=== PATIENT | female | born 1965 | race Caucasian/White ===

== ENCOUNTER 2020-09-08 10:11 | Outpatient (CLI) | payer BC, SELFPAY ==
--- NOTE | ~2020-09-08 | MR_ITS ---
EXAMINATION: MR knee LT wo con DATE: 09/08/2020 11:17 INDICATION: Other tear of medial meniscus. Current injury. Left knee pain. TECHNIQUE: Magnetic resonance imaging (MRI) of the left knee was performed without intravenous contra st. Sequences included axial PD-weighted FS FSE, coronal PD-weighted FSE and PD-weighted FS FSE, sagi ttal PD-weighted FSE, and sagittal T2-weighted FS FSE. COMPARISON: Left knee radiographs 08/23/2020 FINDINGS: Medial compartment: There is a torn bucket-handle tear of posterior horn of medial meniscus. There is shallow partial-thi ckness cartilage loss of tibial condyle medially with moderate subchondral edema-like marrow signal i ntensity. There is full-thickness cartilage loss of femoral condyle involving the central and posteri or articular surface and deep partial thickness cartilage loss involving the medial articular surface with mild subchondral edema-like marrow signal intensity. Lateral compartment: Lateral meniscus is normal. There is deep partial-thickness cartilage loss of tibial condyle posterio rly. There is deep partial thickness cartilage loss of femoral condyle involving the central articula r surface. Patellofemoral compartment: There is deep partial thickness cartilage loss of patellar medial and lateral facets and median ridge with mild subchondral edema-like marrow signal intensity. There is cartilage surface irregularity of trochlea. Ligaments and tendons: The anterior and posterior cruciate ligaments are normal. Medial collateral ligament is intact. There are changes of prior sprain of fibular collateral ligament characterized by thickening and increased signal intensity proximally. There is mild patellar tendinopathy. Fluid: There is a large knee joint effusion. There is trace fluid in a Mehta's cyst. There is mild superfici al infrapatellar bursitis. IMPRESSION: 1. Severe chondrosis of medial compartment and moderate chondrosis of lateral and patellofemoral comp artments. 2. Torn bucket-handle tear of medial meniscus. 3. Large knee joint effusion. Reviewed, dictated and finalized at location A. [employer] IMPRESSION: 1. Severe chondrosis of medial compartment and moderate chondrosis of lateral a nd patellofemoral compartments. 2. Torn bucket-handle tear of medial meniscus. 3. Large knee joint effusion.
== END 2020-09-08 10:12 | disposition home or self-care (01) ==
PROVIDERS: PCP Internal Medicine; Visit Provider Orthopaedic Surgery
DX: S83.242A Other tear of medial meniscus, current injury, left knee, initial encounter (principal)
CPT/HCPCS: 73721

== ENCOUNTER 2020-09-17 02:41 | Outpatient (CLI) | payer BC, SELFPAY ==
[2020-09-17 21:22] LABS: SARS-CoV-2 RNA PCR Negative
== END 2020-09-17 02:42 | disposition home or self-care (01) ==
LOC: ANHCOVIDDT 02:41
PROVIDERS: PCP Internal Medicine; Visit Provider Orthopaedic Surgery
DX: Z01.818 Encounter for other preprocedural examination (principal); Z20.828 Contact with and (suspected) exposure to other viral communicable diseases
CPT/HCPCS: 87635; C9803; U0003

== ENCOUNTER 2020-09-20 00:50 | Day surgery (SDC) | payer BC, SELFPAY ==
[2020-09-12 12:17] VITALS: BMI 29.7
--- NOTE | 2020-09-19 14:35 | WPDANESEPPF ---
Anes - Initial Pre Proc Eval Procedure: Operation Date: 09/20/20 08:45 Proposed Procedures p Left Knee Arthroscopic Partial Medial Meniscectomy - Clifford Wise MD Date/Time: 09/19/20 14:35 Surgeon: Clfiford Wise MD Pre Op Diagnosis: left knee medial meniscus tear Patient Data Age: 54 Gender: F Height: 1.7 m Weight: 86.18 kg Allergies Allergy/AdvReac Type Severity Reaction Status Date / Time Penicillins Allergy Intermediate hives Verified 09/20/20 08:07 Home Medications Medication Instructions Recorded Confirmed Type ibuprofen 400 mg tablet 400 mg PO TID PRN 08/23/20 09/20/20 History multivitamin 1 tablet PO DAILY 09/12/20 09/20/20 History Patient hx anesthesia problems: none Family hx anesthesia problems: none PMFSH Surgical History Surgical History History of tonsillectomy and adenoidectomy (~1976) Family History Family History Father Family history of pancreatic cancer Mother Family history of osteoporosis Unknown Hypertension Osteoporosis Social History Social History (Updated 09/20/20 @ 08:10 by Justin Tarango DO) Smoking status: Former smoker Alcohol intake: never Anes - Eval Final PreProcedure Day of Procedure 09/19/20 14:35 Patient weight: overweight Heart: regular rate and rhythm Lungs: clear to auscultation and normal air movement Airway: Mallampati scale class II Neurological: alert and oriented Last oral intake: >/= 8 hours ASA classification: II Emergent: no Anesthetic plan: proceed Anesthesia type and monitoring: general LMA and standard monitoring Informed Consent: The patient's anesthetic plan and its attendant risks and benefits were discussed with the patient/family/POA. Questions were solicited and answers provided to the satisfaction of the patient/family/POA.
[2020-09-20] VITALS (7 sets, daily range): BP systolic 121–133; BP diastolic 57–76; PULSE 53–78; RESP 14–20; TEMP 36.2–36.7; O2SAT 99–100
--- NOTE | 2020-09-20 07:24 | WPDHPUPDATE1 ---
History and Physical Update Update Date/Time: 09/20/20 07:24 History and Physical has been reviewed, including an updated exam of the patient. There are NO changes in the patient's condition. Risks, benefits, and alternatives have been discussed and questions answered. Patient agrees to proceed with procedure.
[2020-09-20] MEDS: ACETAMINOPHEN 500 MG TABLET 1000 MG PO (07:37)
[2020-09-20] MEDS: KETOROLAC 15 MG/ML VIAL (*BKC) IV PUSH (07:43)
[2020-09-20] MEDS: LACTATED RINGERS 1,000 ML 30 ML IV CONT ×2 (07:45→10:14)
[2020-09-20] MEDS: CLINDAMYCIN 900 MG/D5W 50 ML 900 MG/50 ML PIGGYBACK 50 MG IVPB (09:13)
[2020-09-20] MEDS: BUPIVACAINE/EPINEPHRINE 0.25% 10 ML VIAL 30 ML INFILTRATE (10:00)
[2020-09-20] MEDS: fentaNYL CITRATE INJ (*CRX) 100 MCG/2 ML VIAL 25 MCG IV PUSH ×2 (10:26→10:41)
--- NOTE | 2020-09-20 10:33 | PM.PROC ---
Procedure Note - Detailed Date of procedure: 09/20/20 Pre-op diagnosis: left knee medial meniscus tear Left medial meniscus tear. Post-op diagnosis: same Procedure performed: Arthroscopic partial medial meniscectomy, with chondroplasty. Description of procedure: Significant degenerative medial meniscus tear. Also moderate degenerative changes primarily in the medial compartment. Lesser changes laterally. 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 Type 2 on the medial tibia and type 3 in a large area on the medial femoral weight-bearing surface. Complex and horizontal split tear along the posterior and posterior medial meniscus. There were loose fragments and and displaced flap connected to the posterior horn. Debridement of the unstable meniscus was performed. Chondroplasty was performed on the medial femur. Patella had grade 2 chondromalacia laterally. There was a small blister on the trochlea. Anesthesia: GETA Surgeon: Clifford Wise MD Estimated blood loss (mL): 5 Complications: None Condition: stable Disposition: PACU Findings: Brief History: The patient complained of knee pain, swelling and mechanical symptoms despite conservative treatment. MRI confirmed the presence of a meniscus tear. Procedure Details: The patient was identified and the surgical site confirmed and signed in the preoperative holding area. Antibiotics were started per protocol. She was brought to the operative room and transferred to the OR table. A general anesthetic was administered. Supine position with the operative lower extremity position in the leg cavazos after placement of a well padded tourniquet. The leg support was lowered and the contralateral limb was supported with a soft bolster. The knee was prepped and draped in the usual sterile fashion. A time-out was performed. The portal sites were marked and infiltrated with 0.5% Marcaine 20 mL. The limb was exsanguinated and the tourniquet inflated to 300 mL Hg. Standard inferolateral and inferomedial portals were established. Inflow was obtained with the saline pump. The camera was introduced. Diagnostic inspection of the joint was accomplished. The meniscus was debrided with the arthroscopic shaver and punches until stable. Gentle chondroplasty was performed. The arthroscopic instruments were removed. The tourniquet released and wounds closed with subcutaneous 3-0 Monocryl absorbable suture. Steri strips and a sterile dressing were applied. A light elastic wrap was placed. The patient was extubated and brought to the recovery room in stable condition.
== END 2020-09-20 12:05 | disposition home or self-care (01) ==
PROVIDERS: PCP Internal Medicine; Visit Provider Orthopaedic Surgery
PROC: (CPT 29870; principal; 2020-09-20 08:45)
DX: M23.332 Other meniscus derangements, other medial meniscus, left knee (principal); M94.262 Chondromalacia, left knee; Z87.891 Personal history of nicotine dependence
CPT/HCPCS: 29881; A9270; J1100; J1885; J2250; J2370; J2405; J2704; J3010; J7120

== ENCOUNTER 2021-02-22 16:30 | Outpatient (CLI) | payer BC, SELFPAY ==
--- NOTE | ~2021-02-22 | MR_ITS ---
EXAMINATION: MR knee LT wo con DATE: 02/22/2021 17:49 INDICATION: Left knee pain. TECHNIQUE: Magnetic resonance imaging (MRI) of the left knee was performed without intravenous contra st. Sequences included axial PD-weighted FS FSE, coronal PD-weighted FSE and PD-weighted FS FSE, sagi ttal PD-weighted FSE, and sagittal T2-weighted FS FSE. COMPARISON: Left knee radiographs 01/23/2021, MRI 09/08/2020 FINDINGS: Medial compartment: There is a complex tear of body and posterior horn of medial meniscus. There is deep partial thicknes s cartilage loss of tibial condyle involving the central articular surface. There is a subchondral in sufficiency fracture of medial femoral condyle involving the central articular surface with low signa l fracture line and bone marrow edema. There is full-thickness and near full-thickness cartilage loss of femoral condyle involving the central, medial, and posterior articular surface. Lateral compartment: Lateral meniscus is normal. There is shallow partial-thickness cartilage loss of tibial condyle poste riorly. There is deep partial thickness cartilage loss of femoral condyle involving the central artic ular surface. Patellofemoral compartment: There is deep partial thickness chondral loss of patellar medial facet and median ridge and shallow p artial-thickness [employer] loss of patellar lateral facet with mild subchondral edema-like marrow signa l intensity. There is shallow partial-thickness cartilage loss of medial trochlea with cartilage soft ening. Ligaments and tendons: The anterior and posterior cruciate tendons are intact. There are changes of prior sprains of medial collateral ligament and fibular collateral ligament characterized by increased signal proximally. The re is mild patellar tendinopathy. Fluid: There is a moderate-sized knee joint effusion. There is mild superficial infrapatellar bursitis. IMPRESSION: 1. Insufficiency fracture of medial femoral condyle. 2. Severe chondrosis of medial compartment and moderate chondrosis of lateral and patellofemoral comp artments. 3. Complex tear of medial meniscus. 4. Moderate-sized knee joint effusion. Reviewed, dictated and finalized at location A. IMPRESSION: 1. Insufficiency fracture of medial femoral condyle. 2. Severe chondrosis of medial compartment and moderate chondrosis of lateral a nd patellofemoral compartments. 3. Complex tear of medial meniscus. 4. Moderate-sized knee joint effusion.
== END 2021-02-22 16:31 | disposition home or self-care (01) ==
PROVIDERS: PCP Internal Medicine; Visit Provider Orthopaedic Surgery
DX: S83.232D Complex tear of medial meniscus, current injury, left knee, subsequent encounter (principal); X58.XXXD Exposure to other specified factors, subsequent encounter; M25.462 Effusion, left knee
CPT/HCPCS: 73721